=== PATIENT | male | born 1995 | race Two or more races ===

== ENCOUNTER 2016-09-25 01:04 | Emergency (ER) | payer SELFPAY ==
[~2016-09-25] VITALS: Ht 167.6 cm; Wt 59.0 kg
[2016-09-25 01:06] VITALS: BP 133/71
--- NOTE | 2016-09-25 01:18 | NUR ---
Pt not in rm, searched ER, lobby, and WR. pt LWBS. notified.
== END 2016-09-25 01:18 | disposition left against medical advice (07) ==
LOC: ER 01:08
DX: Z53.21 Procedure and treatment not carried out due to patient leaving prior to being seen by health care provider (principal)
CPT/HCPCS: A4606; Z7610